=== PATIENT | female | born 1970 | race Caucasian/White ===

== ENCOUNTER → 2018-05-05 14:06 | Outpatient (CLI) | payer BC ==
[2016-04-18 10:04] VITALS: BMI 34.0
[~2018-05-05 14:06] MED LIST: CRYSELLE1 TAB PO; ELAVIL75 MG PO; HYDROCODON-ACE1 EAC7 PO; NEURONTIN600 MG PO; NEXIUM20 MG PO; ZANAFLEX4 MG PO; ZYRTEC10 MG PO
[2018-05-05 18:41] LABS: BASOPHILS 0.2 % (0-2); EOSINOPHILS 1.3 % (0-7); HEMATOCRIT 38.7 % (36.0-48.0); LYMPHOCYTES 41.2 % (15-50); MCH 30.3 pg (26.0-34.0); MCHC 33.6 g/dL (31.0-37.0); MCV 90.2 fL (80.0-100.0); MEAN PLATELET VOLUME 10.7 fL (7.4-10.4); MONOCYTES 7.3 % (2-11); PLATELET COUNT 321 10x3/uL (130-400); RBC 4.29 10x6/uL (4.00-5.40); RDW 13.1 % (11.5-14.5); WBC 6.3 10x3/uL (4.8-10.8)
[2018-05-05 18:46] LABS: URIC ACID 5.2 mg/dL (2.6-7.2)
[2018-05-05 18:53] LABS: C-REACTIVE PROTEIN 0.2 mg/dL (0.0-0.9)
[2018-05-05 19:00] LABS: COMPLEMENT C4 31.8 mg/dL (17.4-52.2)
[2018-05-05 19:55] LABS: ERYTHROCYTE SEDIMENTATION RATE 12 mm/hr (0-20)
[2018-05-07 10:21] LABS: ANA REFLEX - DIRECT Negative (Negative)
[2018-05-12 12:18] LABS: CYCLIC CITRULL PEPTIDE IGG/IGA QNS units (())
== END | disposition home or self-care (01) ==
LOC: D.LAB 14:06
PROVIDERS: Orthopaedic Surgery
DX: M25.50 Pain in unspecified joint (principal); M25.561 Pain in right knee

== ENCOUNTER → 2018-05-12 12:20 | Outpatient (CLI) | payer BC ==
[2016-04-18 10:04] VITALS: BMI 34.0
== END | disposition home or self-care (01) ==
LOC: D.MRI 05-08 13:00
DX: M25.561 Pain in right knee (principal)

== ENCOUNTER → 2018-09-25 10:43 | Outpatient (CLI) | payer BC ==
[2016-04-18 10:04] VITALS: BMI 34.0
== END | disposition home or self-care (01) ==
LOC: D.MRI 10:43
DX: M54.12 Radiculopathy, cervical region (principal)